=== PATIENT | male | born 1990 | race Caucasian/White ===

== ENCOUNTER 2016-04-22 09:12 | Emergency (ER) | payer OTHER ==
--- NOTE | 2016-04-22 09:35 | EDDOCDS ---
Physician Documentation [facility] Name: Forrest Mascorro Age: 25 yrs Sex: Male : 1990 Arrival Date: 04/22/2016 Time: 09:12 Bed Triage 1 Private MD: Other - Complete Info On Cds Disposition: 04/22/16 09:29 Discharged to Home/Self Care. Impression: Acute nasopharyngitis [common cold], Acute bronchitis. - Condition is Stable. - Discharge Instructions: Cool Mist Vaporizers, Viral Infections, Bcqm-Ke-Ddyd, Acute Bronchitis, Xsag-oq-Xrmf. - Medication Reconciliation, Local Pharmacy Hours form. - Follow up: Racheal Agarwal [facility]; When: Today; Reason: Further diagnostic work-up, Recheck today's complaints, Continuance of care. - Problem is new. - Symptoms are unchanged. Historical: - Allergies: No known drug Allergies; - Home Meds: 1. trazodone Unknown Oral nightly for sleep 2. Flexeril 10 mg Oral tab as needed 3. allergy medication - PMHx: none; - PSHx: Tonsillectomy; - Social history: Smoking status: Patient uses tobacco products, heavy tobacco smoker. No barriers to communication noted, The patient speaks fluent German, Speaks appropriately for age. - Family history: Not pertinent. - : The pt / caregiver states he / she is not on anticoagulants. Home medication list is obtained from the patient. - Exposure Risk Screening:: None identified. Vital Signs: 04/22 09:19 BP 142 / 78; Pulse 84; Resp 17; Temp 96.4(T); Pulse Ox 100% on R/A; Weight 81.65 kg / lr2 180.01 lbs (R); Height 5 ft. 10 in. (177.80 cm) (R); 09:19 Body Mass Index 25.83 (81.65 kg, 177.80 cm) lr2 MDM: 09:34 Financial registration complete. mm15 Signatures: Beth Cristina, RN RN Alexander Gordon PA PA btw Sherrill, Hannah, RN RN hs1 Carlee Redmond mm15 MTDD
--- NOTE | 2016-04-22 09:35 | EDDOCDS ---
Nurse's Notes [facility] Name: Forrest Mascorro Age: 25 yrs Sex: Male : 1990 Arrival Date: 04/22/2016 Time: 09:12 Bed Triage 1 Private MD: Marlen - Complete Info On Cds Diagnosis: Acute nasopharyngitis [common cold];Acute bronchitis Presentation: 04/22 09:20 Presenting complaint: Patient states: coughing and chest pain. Pain currently 05/20. hs1 Patient states coughing started Monday. Adult Sepsis Screening: The patient does not have new or worsening altered mentation. Patient's respiratory rate is less than 22. Systolic blood pressure is greater than 100. Patient has a qSOFA score of 0- Negative Sepsis Screen. Suicide/Homicide risk assessment- the patient denies having any suicidal and/or homicidal ideations and does not present with any other emotional, behavioral or mental health complaints. 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 Transition of care: patient was not received from another setting of care. 09:20 Acuity: BAYLEE Level 3 hs1 09:20 Method Of Arrival: Walkin/Carried/Asstd hs1 Triage Assessment: 09:22 General: Appears in no apparent distress, Behavior is cooperative. Pain: Location: hs1 chest Pain currently is 3 out of 10 on a pain scale. Pt Declines HIV testing. Respiratory: Airway is patent Respiratory effort is even, unlabored, Respiratory pattern is regular, symmetrical. Derm: Skin is pink, warm & dry. normal. Historical: - Allergies: No known drug Allergies; - Home Meds: 1. trazodone Unknown Oral nightly for sleep 2. Flexeril 10 mg Oral tab as needed 3. allergy medication - PMHx: none; - PSHx: Tonsillectomy; - Social history: Smoking status: Patient uses tobacco products, heavy tobacco smoker. No barriers to communication noted, The patient speaks fluent Wolof, Speaks appropriately for age. - Family history: Not pertinent. - : The pt / caregiver states he / she is not on anticoagulants. Home medication list is obtained from the patient. - Exposure Risk Screening:: None identified. Screenin:23 Screening information is obtained from the patient. Fall risk: No risks identified. hs1 Assistance ADL's: requires no assistance with activities of daily living. Abuse/DV Screen: The patient / caregiver reports he/she is: not in a situation that causes fear, pain or injury. Nutritional screening: No deficits noted. Advance Directives: There is no active DNR order. home support is adequate. Assessment: 09:22 General: patient concerned as family has heart problems. Patient reports mother had hs1 mitral valve prolapse and sister has neuro genetic syncope. . 09:33 General: Appears in no apparent distress, Behavior is appropriate for age, cooperative. srm Respiratory: Airway is patent Respiratory effort is even, unlabored, runny nose. cough. GI: No deficits noted. Derm: No deficits noted. Vital Signs: 09:19 BP 142 / 78; Pulse 84; Resp 17; Temp 96.4(T); Pulse Ox 100% on R/A; Weight 81.65 kg lr2 (R); Height 5 ft. 10 in. (177.80 cm) (R); 09:19 Body Mass Index 25.83 (81.65 kg, 177.80 cm) lr2 Vitals: 09:19 Log In Time: April 22, 2016 at 09:18. lr2 ED Course: 09:16 Patient visited by Eloise Neal. lr2 09:16 Patient moved to Waiting lr2 09:18 Patient moved to Triage 1 hs1 09:19 Other - Complete Info On Cds is Private Physician. lr2 09:20 Triage Initiated hs1 09:22 Alexander Blanc PA is PHCP. btw 09:22 Priscilla Parks MD is Attending Physician. btw 09:22 Patient visited by Alexander Blanc PA. btw 09:27 [facility]. btw 09:33 The patient / caregiver is instructed regarding the plan of care and ED course. Patient srm has correct armband on for positive identification. 09:33 No IV's were initiated during this patient's visit. No procedures done that require srm assistance. Order Results: There are currently no results for this order. Outcome: 09:29 Discharge ordered by Provider. btw 09:33 Discharge Assessment: Patient awake, alert and oriented x 3. No cognitive and/or srm functional deficits noted. Patient verbalized understanding of disposition instructions. patient administered narcotics - no. The following High Risk Discharge criteria are identified: None. Discharged to home ambulatory. Condition: good Condition: stable. Discharge instructions given to patient, Instructed on discharge instructions, follow up and referral plans. Demonstrated understanding of instructions, Pt was receptive of discharge instructions/ teaching. No special radiology studies were completed. Property sent home with patient. 09:34 Patient left the ED. srm Signatures: Beth Cristina, RN RN Alexander Gordon PA PA btw Sherrill, Hannah, RN RN 1 Eloise Neal2 MTDD
--- NOTE | 2016-04-24 10:35 | EDDOCDS ---
Physician Documentation [facility] Name: Forrest Mascorro Age: 25 yrs Sex: Male : 1990 Arrival Date: 04/22/2016 Time: 09:12 Bed Triage 1 Private MD: Other - Complete Info On Cds Disposition: 04/22/16 09:29 Discharged to Home/Self Care. Impression: Acute nasopharyngitis [common cold], Acute bronchitis. - Condition is Stable. - Discharge Instructions: Cool Mist Vaporizers, Viral Infections, Zqko-Vn-Mjbx, Acute Bronchitis, Icsl-ep-Toop. - Medication Reconciliation, Local Pharmacy Hours form. - Follow up: Racheal Agarwal [facility]; When: Today; Reason: Further diagnostic work-up, Recheck today's complaints, Continuance of care. - Problem is new. - Symptoms are unchanged. Historical: - Allergies: No known drug Allergies; - Home Meds: 1. trazodone Unknown Oral nightly for sleep 2. Flexeril 10 mg Oral tab as needed 3. allergy medication - PMHx: none; - PSHx: Tonsillectomy; - Social history: Smoking status: Patient uses tobacco products, heavy tobacco smoker. No barriers to communication noted, The patient speaks fluent Mozambican, Speaks appropriately for age. - Family history: Not pertinent. - : The pt / caregiver states he / she is not on anticoagulants. Home medication list is obtained from the patient. - Exposure Risk Screening:: None identified. Vital Signs: 04/22 09:19 BP 142 / 78; Pulse 84; Resp 17; Temp 96.4(T); Pulse Ox 100% on R/A; Weight 81.65 kg / lr2 180.01 lbs (R); Height 5 ft. 10 in. (177.80 cm) (R); 09:19 Body Mass Index 25.83 (81.65 kg, 177.80 cm) lr2 MDM: 09:34 Financial registration complete. mm15 10:04 [facility] Payment Agreement was scanned into [employer] and attached to record. mm15 04/23 16:36 T-Sheet-- Draft Copy was scanned into [employer] and attached to record. gb Signatures: Beth Cristina, RN RN Erica Huerta, Reg Reg Alexander Pardo PA PA btw Disha Koch, RN RN hs1 Carlee Redmond mm15 The chart was reviewed and I authenticate all verbal orders and agree with the evaluation and treatment provided.Attachments: 04/22 10:04 [facility] Payment Agreement mm15 04/23 16:36 T-Sheet-- Draft Copy gb Chart Complete MTDD
--- NOTE | 2016-04-24 10:35 | EDDOCDS ---
Physician Documentation [facility] Name: Forrest Mascorro Age: 25 yrs Sex: Male : 1990 Arrival Date: 04/22/2016 Time: 09:12 Bed Triage 1 Private MD: Other - Complete Info On Cds Disposition: 04/22/16 09:29 Discharged to Home/Self Care. Impression: Acute nasopharyngitis [common cold], Acute bronchitis. - Condition is Stable. - Discharge Instructions: Cool Mist Vaporizers, Viral Infections, Uwnj-Qw-Drry, Acute Bronchitis, Kknl-mg-Ulry. - Medication Reconciliation, Local Pharmacy Hours form. - Follow up: Racheal Agarwal [facility]; When: Today; Reason: Further diagnostic work-up, Recheck today's complaints, Continuance of care. - Problem is new. - Symptoms are unchanged. Historical: - Allergies: No known drug Allergies; - Home Meds: 1. trazodone Unknown Oral nightly for sleep 2. Flexeril 10 mg Oral tab as needed 3. allergy medication - PMHx: none; - PSHx: Tonsillectomy; - Social history: Smoking status: Patient uses tobacco products, heavy tobacco smoker. No barriers to communication noted, The patient speaks fluent Bruneian, Speaks appropriately for age. - Family history: Not pertinent. - : The pt / caregiver states he / she is not on anticoagulants. Home medication list is obtained from the patient. - Exposure Risk Screening:: None identified. Vital Signs: 04/22 09:19 BP 142 / 78; Pulse 84; Resp 17; Temp 96.4(T); Pulse Ox 100% on R/A; Weight 81.65 kg / lr2 180.01 lbs (R); Height 5 ft. 10 in. (177.80 cm) (R); 09:19 Body Mass Index 25.83 (81.65 kg, 177.80 cm) lr2 MDM: 09:34 Financial registration complete. mm15 10:04 [facility] Payment Agreement was scanned into [employer] and attached to record. mm15 04/23 16:36 T-Sheet-- Draft Copy was scanned into [employer] and attached to record. gb Signatures: Beth Cristina, RN RN Erica Huerta, Reg Reg Alexander Pardo PA PA btw Disha Koch, RN RN hs1 Carlee Redmond mm15 The chart was reviewed and I authenticate all verbal orders and agree with the evaluation and treatment provided.Attachments: 04/22 10:04 [facility] Payment Agreement mm15 04/23 16:36 T-Sheet-- Draft Copy gb Chart Complete MTDD
--- NOTE | 2016-04-24 10:35 | EDDOCDS ---
Nurse's Notes [facility] Name: Forrest Mascorro Age: 25 yrs Sex: Male : 1990 Arrival Date: 04/22/2016 Time: 09:12 Bed Triage 1 Private MD: Marlen - Complete Info On Cds Diagnosis: Acute nasopharyngitis [common cold];Acute bronchitis Presentation: 04/22 09:20 Presenting complaint: Patient states: coughing and chest pain. Pain currently 05/20. hs1 Patient states coughing started Monday. Adult Sepsis Screening: The patient does not have new or worsening altered mentation. Patient's respiratory rate is less than 22. Systolic blood pressure is greater than 100. Patient has a qSOFA score of 0- Negative Sepsis Screen. Suicide/Homicide risk assessment- the patient denies having any suicidal and/or homicidal ideations and does not present with any other emotional, behavioral or mental health complaints. 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 Transition of care: patient was not received from another setting of care. 09:20 Acuity: BAYLEE Level 3 hs1 09:20 Method Of Arrival: Walkin/Carried/Asstd hs1 Triage Assessment: 09:22 General: Appears in no apparent distress, Behavior is cooperative. Pain: Location: hs1 chest Pain currently is 3 out of 10 on a pain scale. Pt Declines HIV testing. Respiratory: Airway is patent Respiratory effort is even, unlabored, Respiratory pattern is regular, symmetrical. Derm: Skin is pink, warm & dry. normal. Historical: - Allergies: No known drug Allergies; - Home Meds: 1. trazodone Unknown Oral nightly for sleep 2. Flexeril 10 mg Oral tab as needed 3. allergy medication - PMHx: none; - PSHx: Tonsillectomy; - Social history: Smoking status: Patient uses tobacco products, heavy tobacco smoker. No barriers to communication noted, The patient speaks fluent Latvian, Speaks appropriately for age. - Family history: Not pertinent. - : The pt / caregiver states he / she is not on anticoagulants. Home medication list is obtained from the patient. - Exposure Risk Screening:: None identified. Screenin:23 Screening information is obtained from the patient. Fall risk: No risks identified. hs1 Assistance ADL's: requires no assistance with activities of daily living. Abuse/DV Screen: The patient / caregiver reports he/she is: not in a situation that causes fear, pain or injury. Nutritional screening: No deficits noted. Advance Directives: There is no active DNR order. home support is adequate. Assessment: 09:22 General: patient concerned as family has heart problems. Patient reports mother had hs1 mitral valve prolapse and sister has neuro genetic syncope. . 09:33 General: Appears in no apparent distress, Behavior is appropriate for age, cooperative. srm Respiratory: Airway is patent Respiratory effort is even, unlabored, runny nose. cough. GI: No deficits noted. Derm: No deficits noted. Vital Signs: 09:19 BP 142 / 78; Pulse 84; Resp 17; Temp 96.4(T); Pulse Ox 100% on R/A; Weight 81.65 kg lr2 (R); Height 5 ft. 10 in. (177.80 cm) (R); 09:19 Body Mass Index 25.83 (81.65 kg, 177.80 cm) lr2 Vitals: 09:19 Log In Time: April 22, 2016 at 09:18. lr2 ED Course: 09:16 Patient visited by Eloise Neal. lr2 09:16 Patient moved to Waiting lr2 09:18 Patient moved to Triage 1 hs1 09:19 Other - Complete Info On Cds is Private Physician. lr2 09:20 Triage Initiated hs1 09:22 Alexander Blanc PA is PHCP. btw 09:22 Priscilla Parks MD is Attending Physician. btw 09:22 Patient visited by Alexander Blanc PA. btw 09:27 [facility] is Referral Physician. btw 09:33 The patient / caregiver is instructed regarding the plan of care and ED course. Patient srm has correct armband on for positive identification. 09:33 No IV's were initiated during this patient's visit. No procedures done that require srm assistance. 10:04 [facility] Payment Agreement was scanned into [employer] and attached to record. mm15 10:11 Patient name changed from Forrest\S\\S\Ludwin\S\ to Forrest\S\ \S\Ludwin. EDMS 04/23 16:36 T-Sheet-- Draft Copy was scanned into [employer] and attached to record. gb Order Results: There are currently no results for this order. Outcome: 04/22 09:29 Discharge ordered by Provider. bt 09:33 Discharge Assessment: Patient awake, alert and oriented x 3. No cognitive and/or srm functional deficits noted. Patient verbalized understanding of disposition instructions. patient administered narcotics - no. The following High Risk Discharge criteria are identified: None. Discharged to home ambulatory. Condition: good Condition: stable. Discharge instructions given to patient, Instructed on discharge instructions, follow up and referral plans. Demonstrated understanding of instructions, Pt was receptive of discharge instructions/ teaching. No special radiology studies were completed. Property sent home with patient. 09:34 Patient left the ED. srm Signatures: Dispatcher [employer] EDMS Beth Cristina, RN RN Erica Huerta, Alexander Corrales PA PA btw Disha Koch, RN RN hs1 Carlee Redmond mm15 Eloise Neal2 Chart Complete [facility]
== END 2016-04-22 09:34 | disposition home or self-care (01) ==
LOC: M ED 09:12
DX: J20.9 Acute bronchitis, unspecified (principal); Z72.0 Tobacco use; Z79.891 Long term (current) use of opiate analgesic; Z79.899 Other long term (current) drug therapy

== ENCOUNTER 2016-08-10 06:03 | Emergency (ER) | payer OTHER ==
[~2016-08-10] VITALS: Ht 177.8 cm; Wt 79.4 kg
[2016-08-10] MEDS ORDERED: KETOROLAC 60 MG/2 ML VIAL (J1885) IM ONE (06:30)
[2016-08-10] MEDS ORDERED: IBUP80TA PO (07:18)
[2016-08-10] MEDS ORDERED: CYCL10TA PO (07:18)
[2016-08-10 07:38] VITALS: BP 129/81
--- NOTE | 2016-08-10 08:22 | REP ---
Clinical: Lower back pain . Technique: AP, lateral, bilateral oblique, and coned-down views. Findings: Alignment and lordosis is maintained. The vertebral bodies including transverse process and spinous processes are intact and normal. There is no evidence for acute fracture / compression injury or subluxation. No evidence for spondylolysis or spondylolisthesis. No significant degenerative change is noted. Impression: Normal lumbosacral spine radiograph series. Signed by Flash Aleman MD 08/10/2016 08:13 A
== END 2016-08-10 07:45 | disposition home or self-care (01) ==
LOC: M ED 06:52
DX: M54.5 Low back pain (principal); G89.29 Other chronic pain
CPT/HCPCS: 72110; 96372; 99282; J1885

== ENCOUNTER 2016-10-21 14:01 | Emergency (ER) | payer OTHER ==
[~2016-10-21] VITALS: Ht 208.3 cm; Wt 77.3 kg
[~2016-10-21 14:01] MED LIST: CYCL10TA PO; IBUP80TA PO
[2016-10-21 14:02] VITALS: BP 132/72
[2016-10-21] MEDS ORDERED: BACITRACIN OINT 30GM TOP ONE (16:00)
[2016-10-21] MEDS ORDERED: NORCOTAB PO (16:13)
[2016-10-21] MEDS ORDERED: SILV-4 TOP (16:13)
[2017-01-09] MEDS ORDERED: CLAR1TAB2 PO (00:22)
[2017-01-09] MEDS ORDERED: TRAZ50TA11 PO (00:22)
[2017-01-09] MEDS ORDERED: LIDO5DIS41 TD (00:22)
[2017-01-09] MEDS ORDERED: IBUP1TAB7 PO (00:22)
[2017-01-09] MEDS ORDERED: MUCI600T37 PO (00:22)
[2017-01-09] MEDS ORDERED: NAPR500T3 PO (00:22)
[2017-01-09] MEDS ORDERED: SUDA30TA8 PO (00:22)
[2017-01-09] MEDS ORDERED: PRED20TA PO (02:31)
[2017-01-09] MEDS ORDERED: ZITHTAB PO (02:31)
[2017-01-09] MEDS ORDERED: VENTAER INH (02:31)
== END 2016-10-21 16:21 | disposition home or self-care (01) ==
LOC: M ED 14:01
DX: Z77.098 Contact with and (suspected) exposure to other hazardous, chiefly nonmedicinal, chemicals (principal); T23.191A Burn of first degree of multiple sites of right wrist and hand, initial encounter; X58.XXXA Exposure to other specified factors, initial encounter; Y93.9 Activity, unspecified; Y92.9 Unspecified place or not applicable; Y99.0 Civilian activity done for income or pay; M54.9 Dorsalgia, unspecified

== ENCOUNTER 2016-12-23 06:15 | Emergency (ER) | payer OTHER ==
[~2016-12-23] VITALS: Ht 177.8 cm; Wt 80.0 kg
[~2016-12-23 06:15] MED LIST changes: +NORCOTAB PO; +SILV-4 TOP
[2016-12-23 06:19] VITALS: BP 137/87
[2016-12-23] MEDS ORDERED: CYCL10TA PO (06:24)
[2016-12-23] MEDS ORDERED: IBUP1TAB7 PO (06:24)
[2016-12-23] MEDS ORDERED: KETOROLAC 60 MG/2 ML VIAL (J1885) IM ONE (06:45)
[2017-01-09] MEDS ORDERED: LIDO5DIS41 TD (00:22)
[2017-01-09] MEDS ORDERED: TRAZ50TA11 PO (00:22)
[2017-01-09] MEDS ORDERED: CLAR1TAB2 PO (00:22)
[2017-01-09] MEDS ORDERED: NAPR500T3 PO (00:22)
[2017-01-09] MEDS ORDERED: SUDA30TA8 PO (00:22)
[2017-01-09] MEDS ORDERED: MUCI600T37 PO (00:22)
[2017-01-09] MEDS ORDERED: IBUP1TAB7 PO (00:22)
[2017-01-09] MEDS ORDERED: VENTAER INH (02:31)
[2017-01-09] MEDS ORDERED: ZITHTAB PO (02:31)
[2017-01-09] MEDS ORDERED: PRED20TA PO (02:31)
== END 2016-12-23 06:51 | disposition home or self-care (01) ==
LOC: M ED 06:15
DX: M54.5 Low back pain (principal); F17.200 Nicotine dependence, unspecified, uncomplicated
CPT/HCPCS: 96372; 99282; J1885

== ENCOUNTER 2017-03-29 22:04 | Emergency (ER) | payer OTHER ==
[2017-03-30] MEDS: AZITHROMYCIN 250 MG TAB PO (01:21)
[2017-03-30] MEDS: BENZONATATE 100 MG CAP PO (01:21)
== END 2017-03-30 01:27 | disposition home or self-care (01) ==
LOC: M ED 22:04
DX: J06.9 Acute upper respiratory infection, unspecified (principal); M54.9 Dorsalgia, unspecified; G25.0 Essential tremor; Z87.09 Personal history of other diseases of the respiratory system
CPT/HCPCS: 71046

== ENCOUNTER 2017-07-26 11:59 | Inpatient (IN) | payer OTHER ==
[2017-07-26 12:26] LABS: HEMATOCRIT 43.4 % (42.0-52.0); MEAN CORPUSCULAR HEMOGLOBIN 31.6 pg (27.0-33.0); MEAN CORPUSCULAR HGB CONC 34.6 g/dl (32.0-36.5); MEAN CORPUSCULAR VOLUME 91.4 fl (80.0-96.0); PLATELET COUNT, AUTOMATED 235 10^3/uL (150-450); RED BLOOD COUNT 4.75 10^6/uL (4.30-6.10); RED CELL DISTRIBUTION WIDTH 11.7 % (11.5-14.5); WHITE BLOOD COUNT 7.5 10^3/uL (4.0-10.0)
[2017-07-26 12:46] LABS: AMPHETAMINES LEVEL URINE NEGATIVE (NEGATIVE); BARBITURATES URINE NEGATIVE (NEGATIVE); BENZODIAZEPINES URINE NEGATIVE (NEGATIVE); CANNABINOIDS URINE NEGATIVE (NEGATIVE); COCAINE METABOLITE URINE NEGATIVE (NEGATIVE); METHADONE URINE NEGATIVE (NEGATIVE); OPIATES URINE NEGATIVE (NEGATIVE); PHENCYCLIDINE URINE NEGATIVE (NEGATIVE)
[2017-07-26 12:53] LABS: ALBUMIN 4.1 GM/DL (3.2-5.2); ALBUMIN/GLOBULIN RATIO 1.14 (1.00-1.93); ALKALINE PHOSPHATASE 76 U/L (45-117); ALT/SGPT 32 U/L (12-78); ANION GAP 4 MEQ/L (8-16); AST/SGOT 20 U/L (7-37); BILIRUBIN,DIRECT < 0.1 MG/DL (0.0-0.2); BILIRUBIN,TOTAL 0.4 MG/DL (0.2-1.0); BLOOD UREA NITROGEN 11 MG/DL (7-18); CALCIUM LEVEL 8.5 MG/DL (8.5-10.1); CARBON DIOXIDE LEVEL 28 MEQ/L (21-32); CHLORIDE LEVEL 108 MEQ/L (98-107); CREATININE FOR GFR 0.97 MG/DL (0.70-1.30); ETHYL ALCOHOL (ETHANOL) 0.003 % (0.000-0.010); GLOMERULAR FILTRATION RATE > 60.0 (>60); GLUCOSE, FASTING 97 MG/DL (70-100); POTASSIUM SERUM 4.5 MEQ/L (3.5-5.1); SALICYLATE LEVEL < 1.7 MG/DL (5.0-30.0); SODIUM LEVEL 140 MEQ/L (136-145); THYROID STIMULATING HORMONE 0.985 uIU/ML (0.358-3.740); TOTAL PROTEIN 7.7 GM/DL (6.4-8.2)
[2017-07-26 12:55] LABS: ACETAMINOPHEN LEVEL < 2.0 UG/ML (10.0-30.0)
[2017-07-26] MEDS ORDERED: MOM 30ML SUSPENSION UDC PO (15:15)
[2017-07-26] MEDS ORDERED: MAALOX 30 ML SUSP *UDC PO (15:15)
[2017-07-26] MEDS: traZODone 50 MG TAB PO (21:41)
[2017-07-26] MEDS: ACETAMINOPHEN TAB 650MG DOSE (2X325MG) PO (21:42)
[2017-07-27] MEDS: ACETAMINOPHEN TAB 650MG DOSE (2X325MG) PO (08:38)
[2017-07-27] MEDS ORDERED: LORATADINE 10 MG TAB PO (11:15)
[2017-07-27] MEDS: VENLAFAXINE **XR** 37.5 MG CAPSULE PO (11:29)
[2017-07-27] MEDS: NICOTINE 21MG/24HR 1 EA TRANSDERMAL TD (14:36)
[2017-07-27] MEDS: traZODone 50 MG TAB PO (22:44)
[2017-07-28] MEDS: VENLAFAXINE **XR** 37.5 MG CAPSULE PO ×2 (08:31→11:44)
[2017-07-28] MEDS: NICOTINE 21MG/24HR 1 EA TRANSDERMAL TD (08:32)
[2017-07-28] MEDS: traZODone 100 MG TAB PO (22:50)
[2017-07-28] MEDS: hydrOXYzine 50 MG TAB PO (23:38)
[2017-07-29] MEDS: NICOTINE 21MG/24HR 1 EA TRANSDERMAL TD (08:19)
[2017-07-29] MEDS: VENLAFAXINE **XR** 75MG CAPSULE PO (09:24)
[2017-07-29] MEDS: hydrOXYzine 50 MG TAB PO (23:28)
[2017-07-29] MEDS: traZODone 100 MG TAB PO (23:28)
[2017-07-30] MEDS: NICOTINE 21MG/24HR 1 EA TRANSDERMAL TD (08:13)
[2017-07-30] MEDS: VENLAFAXINE **XR** 75MG CAPSULE PO (08:14)
[2017-07-30] MEDS: hydrOXYzine 50 MG TAB PO ×3 (09:34→22:24)
[2017-07-30] MEDS: GABAPENTIN 100 MG CAP PO (22:24)
[2017-07-30] MEDS: traZODone 100 MG TAB PO (22:24)
[2017-07-31] MEDS: VENLAFAXINE **XR** 75MG CAPSULE PO (08:07)
[2017-07-31] MEDS: NICOTINE 21MG/24HR 1 EA TRANSDERMAL TD (08:07)
[2017-07-31] MEDS: hydrOXYzine 50 MG TAB PO (08:07)
[2017-07-31] MEDS: GABAPENTIN 100 MG CAP PO (08:07)
[2017-07-31] MEDS: ACETAMINOPHEN TAB 650MG DOSE (2X325MG) PO (09:43)
== END 2017-07-31 11:35 | disposition home or self-care (01) | DRG 880 ==
LOC: M ED 11:59 → M ED INP 15:01 → M PSY 16:47
DX: F41.1 Generalized anxiety disorder (principal); F32.9 Major depressive disorder, single episode, unspecified; Z79.899 Other long term (current) drug therapy; Z88.8 Allergy status to other drugs, medicaments and biological substances; Z91.010 Allergy to peanuts; M54.5 Low back pain; F17.210 Nicotine dependence, cigarettes, uncomplicated; J30.9 Allergic rhinitis, unspecified

== ENCOUNTER 2017-08-22 18:18 | Inpatient (IN) | payer OTHER ==
[2017-08-22 18:52] LABS: HEMATOCRIT 44.3 % (42.0-52.0); HEMOGLOBIN 15.3 g/dl (13.5-17.5); MEAN CORPUSCULAR HEMOGLOBIN 31.5 pg (27.0-33.0); MEAN CORPUSCULAR HGB CONC 34.5 g/dl (32.0-36.5); MEAN CORPUSCULAR VOLUME 91.3 fl (80.0-96.0); PLATELET COUNT, AUTOMATED 242 10^3/uL (150-450); RED BLOOD COUNT 4.85 10^6/uL (4.30-6.10); RED CELL DISTRIBUTION WIDTH 11.6 % (11.5-14.5); WHITE BLOOD COUNT 8.3 10^3/uL (4.0-10.0)
[2017-08-22 19:09] LABS: AMPHETAMINES LEVEL URINE NEGATIVE (NEGATIVE); BARBITURATES URINE NEGATIVE (NEGATIVE); BENZODIAZEPINES URINE NEGATIVE (NEGATIVE); CANNABINOIDS URINE NEGATIVE (NEGATIVE); COCAINE METABOLITE URINE NEGATIVE (NEGATIVE); METHADONE URINE NEGATIVE (NEGATIVE); OPIATES URINE NEGATIVE (NEGATIVE); PHENCYCLIDINE URINE NEGATIVE (NEGATIVE)
[2017-08-22 19:24] LABS: ALBUMIN 4.1 GM/DL (3.2-5.2); ALBUMIN/GLOBULIN RATIO 1.14 (1.00-1.93); ALKALINE PHOSPHATASE 80 U/L (45-117); ALT/SGPT 56 U/L (12-78); ANION GAP 7 MEQ/L (8-16); AST/SGOT 25 U/L (7-37); BILIRUBIN,DIRECT 0.1 MG/DL (0.0-0.2); BILIRUBIN,TOTAL 0.4 MG/DL (0.2-1.0); BLOOD UREA NITROGEN 8 MG/DL (7-18); CALCIUM LEVEL 8.5 MG/DL (8.5-10.1); CARBON DIOXIDE LEVEL 25 MEQ/L (21-32); CHLORIDE LEVEL 108 MEQ/L (98-107); CREATININE FOR GFR 1.13 MG/DL (0.70-1.30); ETHYL ALCOHOL (ETHANOL) 0.006 % (0.000-0.010); GLOMERULAR FILTRATION RATE > 60.0 (>60); GLUCOSE, FASTING 94 MG/DL (70-100); POTASSIUM SERUM 4.1 MEQ/L (3.5-5.1); SALICYLATE LEVEL < 1.7 MG/DL (5.0-30.0); SODIUM LEVEL 140 MEQ/L (136-145); TOTAL PROTEIN 7.7 GM/DL (6.4-8.2)
[2017-08-22 19:25] LABS: ACETAMINOPHEN LEVEL < 2.0 UG/ML (10.0-30.0)
[2017-08-22] MEDS ORDERED: ACETAMINOPHEN TAB 650MG DOSE (2X325MG) PO (23:15)
[2017-08-22] MEDS ORDERED: MOM 30ML SUSPENSION UDC PO (23:15)
[2017-08-22] MEDS ORDERED: MAALOX 30 ML SUSP *UDC PO (23:15)
[2017-08-22] MEDS ORDERED: NICOTINE 21MG/24HR 1 EA TRANSDERMAL TD (23:15)
[2017-08-23] MEDS: hydrOXYzine 50 MG TAB PO ×3 (00:17→22:38)
[2017-08-23] MEDS: traZODone 50 MG TAB PO ×2 (00:18→22:38)
[2017-08-23] MEDS: GABAPENTIN 100 MG CAP PO ×3 (08:03→22:38)
[2017-08-23] MEDS: TOLNAFTATE 1% CREAM 15 GM EXT ×2 (08:03→22:39)
[2017-08-23] MEDS: buPROPion **XL** TABLET 150MG (WELLBUTRIN XL) PO (08:03)
[2017-08-23] MEDS: CETIRIZINE (ZyrTEC) 10 MG TAB PO (10:16)
[2017-08-24] MEDS: CETIRIZINE (ZyrTEC) 10 MG TAB PO (08:01)
[2017-08-24] MEDS: buPROPion **XL** TABLET 150MG (WELLBUTRIN XL) PO (08:01)
[2017-08-24] MEDS: GABAPENTIN 100 MG CAP PO ×3 (08:01→22:37)
[2017-08-24] MEDS: TOLNAFTATE 1% CREAM 15 GM EXT ×2 (08:44→22:39)
[2017-08-24] MEDS ORDERED: ISOVUE-370 76% 100ML VIAL (Q9967) As Ordered (08:51)
[2017-08-24 12:54] LABS: BASO % 0.5 % (0.0-1.0); EOS # 0.4 10^3/uL (0.0-0.50); EOS % 5.6 % (0.0-3.0); HEMATOCRIT 41.8 % (42.0-52.0); HEMOGLOBIN 14.3 g/dl (13.5-17.5); IMMATURE GRANULOCYTE % 0.2 % (0-3.0); LYMPH # 1.7 10^3/uL (1.5-6.5); LYMPH % 27.4 % (24.0-44.0); MEAN CORPUSCULAR HEMOGLOBIN 31.4 pg (27.0-33.0); MEAN CORPUSCULAR HGB CONC 34.2 g/dl (32.0-36.5); MEAN CORPUSCULAR VOLUME 91.9 fl (80.0-96.0); MONO # 0.5 10^3/uL (0.0-0.8); MONO % 8.5 % (0.0-5.0); NEUTROPHILS # 3.6 10^3/uL (1.8-7.7); NEUTROPHILS % 57.8 % (36.0-66.0); PLATELET COUNT, AUTOMATED 226 10^3/uL (150-450); RED BLOOD COUNT 4.55 10^6/uL (4.30-6.10); RED CELL DISTRIBUTION WIDTH 11.6 % (11.5-14.5); WHITE BLOOD COUNT 6.3 10^3/uL (4.0-10.0)
[2017-08-24 13:27] LABS: ALBUMIN 4.1 GM/DL (3.2-5.2); ALBUMIN/GLOBULIN RATIO 1.28 (1.00-1.93); ALKALINE PHOSPHATASE 79 U/L (45-117); ALT/SGPT 43 U/L (12-78); AST/SGOT 20 U/L (7-37); BILIRUBIN,DIRECT 0.2 MG/DL (0.0-0.2); BILIRUBIN,TOTAL 0.5 MG/DL (0.2-1.0); CALCIUM LEVEL 8.8 MG/DL (8.5-10.1); GLOMERULAR FILTRATION RATE > 60.0 (>60); TOTAL PROTEIN 7.3 GM/DL (6.4-8.2)
[2017-08-24 13:33] LABS: TOTAL 25(OH) VITAMIN D 24.4 NG/ML (30.0-100.0)
[2017-08-24] MEDS: hydrOXYzine 50 MG TAB PO ×2 (16:12→22:38)
[2017-08-24] MEDS: traZODone 50 MG TAB PO (22:37)
[2017-08-25] MEDS: buPROPion **XL** TABLET 150MG (WELLBUTRIN XL) PO (08:18)
[2017-08-25] MEDS: CETIRIZINE (ZyrTEC) 10 MG TAB PO (08:18)
[2017-08-25] MEDS: GABAPENTIN 100 MG CAP PO (08:18)
[2017-08-25] MEDS: TOLNAFTATE 1% CREAM 15 GM EXT (08:18)
[2017-08-25] MEDS: hydrOXYzine 50 MG TAB PO (08:18)
== END 2017-08-25 10:35 | disposition home or self-care (01) | DRG 885 ==
LOC: M PSY 08-24 10:02 → M ED 18:18 → M ED INP 21:27 → M PSY 21:59
DX: F39 Unspecified mood [affective] disorder (principal); R45.851 Suicidal ideations; F17.210 Nicotine dependence, cigarettes, uncomplicated; B35.3 Tinea pedis; M54.9 Dorsalgia, unspecified; J30.81 Allergic rhinitis due to animal (cat) (dog) hair and dander; Z76.5 Malingerer [conscious simulation]; Z88.8 Allergy status to other drugs, medicaments and biological substances; Z91.010 Allergy to peanuts; Z79.899 Other long term (current) drug therapy

== ENCOUNTER → 2017-09-18 | Outpatient (CLI) | payer OTHER ==
[2017-09-18 13:22] LABS: BASO % 0.4 % (0.0-1.0); EOS # 0.4 10^3/uL (0.0-0.50); HEMATOCRIT 44.9 % (42.0-52.0); HEMOGLOBIN 15.1 g/dl (13.5-17.5); IMMATURE GRANULOCYTE % 0.3 % (0-3.0); LYMPH # 1.8 10^3/uL (1.5-6.5); LYMPH % 19.5 % (24.0-44.0); MEAN CORPUSCULAR HEMOGLOBIN 31.1 pg (27.0-33.0); MEAN CORPUSCULAR HGB CONC 33.6 g/dl (32.0-36.5); MEAN CORPUSCULAR VOLUME 92.4 fl (80.0-96.0); MONO # 0.6 10^3/uL (0.0-0.8); MONO % 6.3 % (0.0-5.0); NEUTROPHILS # 6.4 10^3/uL (1.8-7.7); NEUTROPHILS % 69.5 % (36.0-66.0); PLATELET COUNT, AUTOMATED 235 10^3/uL (150-450); RED BLOOD COUNT 4.86 10^6/uL (4.30-6.10); RED CELL DISTRIBUTION WIDTH 11.5 % (11.5-14.5); WHITE BLOOD COUNT 9.3 10^3/uL (4.0-10.0)
[2017-09-18 13:35] LABS: INR 1.04; PROTHROMBIN TIME 13.7 SECONDS (12.1-14.4)
[2017-09-18 13:36] LABS: PARTIAL THROMBOPLASTIN TIME 32.3 SECONDS (25.4-37.6)
[2017-09-18 13:50] LABS: ALBUMIN 4.1 GM/DL (3.2-5.2); ALBUMIN/GLOBULIN RATIO 1.24 (1.00-1.93); ALKALINE PHOSPHATASE 98 U/L (45-117); ALT/SGPT 31 U/L (12-78); AST/SGOT 18 U/L (7-37); BILIRUBIN,DIRECT 0.1 MG/DL (0.0-0.2); BILIRUBIN,TOTAL 0.4 MG/DL (0.2-1.0); CALCIUM LEVEL 8.6 MG/DL (8.5-10.1); CREATININE FOR GFR 1.28 MG/DL (0.70-1.30); GLOMERULAR FILTRATION RATE > 60.0 (>60); TOTAL PROTEIN 7.4 GM/DL (6.4-8.2)
[2017-09-18 14:02] LABS: TOTAL 25(OH) VITAMIN D 29.9 NG/ML (30.0-100.0)
[2017-09-18 14:24] LABS: ERYTHROCYTE SEDIMENTATION RATE 5 mm/hr (0-15)
[2017-09-23 00:14] LABS: ANCA-ATYPICAL <1:20 titer (Neg:<1:20); ANGIOTENSIN 1 CONVERTING ENZYM 68 U/L (14-82); ANTI DOUBLE STRAND-DNA AB <1 IU/mL (0-9); ANTINUCLEAR ANTIBODIES DIRECT Negative (Negative); ASPERGILLUS FLAVUS ABY Negative (Neg:<1:1); ASPERGILLUS FUMIGATUS ABY Negative (Neg:<1:1); ASPERGILLUS NIGER ABY Negative (Neg:<1:1); BLASTOMYCES ANTIBODY LEVEL Negative (Neg:<1:1); COCCIDIOMYCOSIS ANTIBODY 0.1 IV (<=0.9); CRYPTOCOCCUS ANTIGEN SER Negative (Negative); CYTOPLASMIC NEUTROP AB ANCA-C <1:20 titer (Neg:<1:20); HISTOPLASMOSIS ANTIBODY Negative (Neg:<1:1); PERINUCLEAR AB ANCA-P <1:20 titer (Neg:<1:20); RNP ANTIBODIES <0.2 AI (0.0-0.9); SJOGREN'S ANTI SS-A <0.2 AI (0.0-0.9); SJOGREN'S ANTI SS-B <0.2 AI (0.0-0.9); SMITH ANTIBODIES <0.2 AI (0.0-0.9); VITAMIN D 1,25 DIHYDROXY 79.5 pg/mL (19.9-79.3)
== END ==
LOC: M SMT 11:06
DX: R91.8 Other nonspecific abnormal finding of lung field (principal)
CPT/HCPCS: 82310

== ENCOUNTER → 2017-09-22 | Outpatient (CLI) | payer OTHER | LOC: M RAD 12:19 | DX: R91.8 Other nonspecific abnormal finding of lung field (principal) | CPT/HCPCS: 71250 ==

== ENCOUNTER 2017-10-05 10:28 | Day surgery (SDC) | payer OTHER ==
[2017-10-05] MEDS ORDERED: LIDOCAINE 1% MDV 20ML VIAL SQ (10:45)
[2017-10-05] MEDS ORDERED: LR 1,000 ML IV ×2 (10:45→15:15)
[2017-10-05] MEDS ORDERED: MIDAZOLAM INJ 2 MG/2 ML VIAL (J2250) As Ordered (14:03)
[2017-10-05] MEDS ORDERED: PROPOFOL 200 MG/20 ML VIAL As Ordered (14:03)
[2017-10-05] MEDS ORDERED: ROCURONIUM BROMIDE 50 MG/5 ML VIAL As Ordered (14:03)
[2017-10-05] MEDS ORDERED: fentaNYL 100 MCG/2 ML INJECTION (J3010) As Ordered (14:03)
[2017-10-05] MEDS ORDERED: LIDOCAINE 2% INJ 100 MG/5 ML SDV (FOR ANES.) As Ordered (14:03)
[2017-10-05] MEDS: CETACAINE SPRAY 5GM As Ordered (14:03)
[2017-10-05] MEDS ORDERED: dexameTHASONE 4 MG/ML 1ML VIAL (J1100) As Ordered (14:03)
[2017-10-05] MEDS ORDERED: ONDANSETRON 4MG/2ML VIAL (J2405) As Ordered (14:18)
[2017-10-05] MEDS ORDERED: SUGAMMADEX SODIUM 500 MG/5 ML VIAL (BRIDION) As Ordered (14:36)
[2017-10-05] MEDS: THROMBIN SOLN 5,000 UNITS VIAL As Ordered (14:46)
[2017-10-05] MEDS: LIDOCAINE 4% TOPICAL SOLN 50 ML BTL As Ordered (14:47)
[2017-10-05] MEDS: LIDOCAINE 1% SDV INJ 30 ML VIAL As Ordered (14:47)
[2017-10-05] MEDS: EPINEPHrine 1MG/10ML SYRINGE 1.5IN As Ordered (14:47)
[2017-10-05] MEDS: LIDOCAINE VISCOUS 2% SOLN 15ML UDC As Ordered (14:47)
[2017-10-05] MEDS ORDERED: PERCOCET 5MG/325MG TAB PO (15:15)
[2017-10-05] MEDS ORDERED: fentaNYL 100 MCG/2 ML INJECTION (J3010) IV (15:15)
[2017-10-05] MEDS ORDERED: ONDANSETRON 4MG/2ML VIAL (J2405) IV (15:15)
[2017-10-05] MEDS ORDERED: METOCLOPRAMIDE INJ 10MG/2ML VIAL (J2765) IV (15:15)
== END 2017-10-05 16:50 | disposition home or self-care (01) ==
LOC: M SDC 10:28
DX: R93.8 Abnormal findings on diagnostic imaging of other specified body structures (principal); J42 Unspecified chronic bronchitis; R07.9 Chest pain, unspecified; R29.898 Other symptoms and signs involving the musculoskeletal system; F41.9 Anxiety disorder, unspecified; F32.9 Major depressive disorder, single episode, unspecified; F43.10 Post-traumatic stress disorder, unspecified; J84.10 Pulmonary fibrosis, unspecified; R06.83 Snoring; Z88.8 Allergy status to other drugs, medicaments and biological substances; Z91.010 Allergy to peanuts; Z91.09 Other allergy status, other than to drugs and biological substances; Z79.899 Other long term (current) drug therapy; Z72.0 Tobacco use
CPT/HCPCS: 31629

== ENCOUNTER → 2017-10-17 | Outpatient (CLI) | payer OTHER ==
[~2017-10-17] MED LIST changes: -CYCL10TA PO; -IBUP80TA PO; +METHACHOLINE KIT (J7674) INH; -NORCOTAB PO; -SILV-4 TOP
== END ==
LOC: M CARPUL 07:10
DX: R06.02 Shortness of breath (principal)
CPT/HCPCS: J7674

== ENCOUNTER 2017-12-02 23:56 | Emergency (ER) | payer OTHER ==
[2017-12-03] MEDS: KETOROLAC 30 MG/ML VIAL (J1885) IV (03:11)
[2017-12-03] MEDS: diphenhydrAMINE INJ 50MG/ML VIAL (J1200) IV (03:11)
[2017-12-03] MEDS: METOCLOPRAMIDE INJ 10MG/2ML VIAL (J2765) IV (03:12)
[2017-12-03] MEDS: NS 1,000 ML IV (03:12)
== END 2017-12-03 05:39 | disposition home or self-care (01) ==
LOC: M ED 23:56
DX: G43.909 Migraine, unspecified, not intractable, without status migrainosus (principal); Z79.899 Other long term (current) drug therapy; Z88.8 Allergy status to other drugs, medicaments and biological substances; Z91.010 Allergy to peanuts; J30.81 Allergic rhinitis due to animal (cat) (dog) hair and dander; F17.210 Nicotine dependence, cigarettes, uncomplicated
CPT/HCPCS: J1200

== ENCOUNTER → 2017-12-10 | Outpatient (CLI) | payer OTHER | LOC: M SLEEP 20:00 | DX: G47.30 Sleep apnea, unspecified (principal) | CPT/HCPCS: 95810 ==

== ENCOUNTER → 2017-12-28 | Outpatient (CLI) | payer OTHER | LOC: M RAD 08:38 | DX: D86.2 Sarcoidosis of lung with sarcoidosis of lymph nodes (principal) | CPT/HCPCS: 71250 ==

== ENCOUNTER → 2018-03-27 | Outpatient (REF) | payer OTHER ==
[~2018-03-27] MED LIST changes: +ACET-683 PO; +ALBU17IN2 INH; +ANTI1CRE3 EXT; +BANO25CA PO; +BUPR150T3 PO; +CETI10TA PO; +CLAR1TAB2 PO; +CYCL10TA PO; +GABA-1171 PO; +GABA-843 PO; +GUAI1SYP8 PO; +HYDR50TA70 PO; +HYDRO50TAB PO; +IBUP1TAB7 PO; +IBUP80TA PO; +LIDO5DIS41 TD; +LORA-243 PO; -METHACHOLINE KIT (J7674) INH; +MUCI600T37 PO; +NAPR-885 PO; +NICO21DI34 TD; +NICO21DI6 TD; +NICO2GUM34 PO; +NICO2GUM40 PO; +NORCOTAB PO; +PRED20TA PO; +QUET5TAB; +SILV-4 TOP; +SUDA30TA8 PO; +TESS100C PO; +TRAZ-160 PO; +TRAZ-163 PO; +TRAZ10TA PO; +VENL75CA47 PO; +VENTAER INH; +ZITH250T PO; +ZITHTAB PO
[2018-03-31 00:07] LABS: AMITRIPTYLINE 160 ng/mL (Not Estab.); AMITRIPTYLINE AND NORTRIPTYLI 230 ng/mL (80-200); NORTRIPTYLINE 70 ng/mL (Not Estab.)
== END ==
LOC: M LABNEURO 13:57
PROVIDERS: ATTEND Psychiatry & Neurology Neurology
DX: G43.909 Migraine, unspecified, not intractable, without status migrainosus (principal)